=== PATIENT | male | born 1945 | race African-American/Black ===

== ENCOUNTER → 2017-01-08 | Outpatient (CLI) | payer OTHER ==
[~2017-01-08] MED LIST: BUPIVACAINE MPF 0.25% 10 ML VIAL. ONE; DEXAMETHASONE SOD PHOS 4 MG/ML VIAL ONE; IOHEXOL 300 MG/ML 50 ML VIAL. ONE; LIDOCAINE 1% PF 30 ML VIAL. ONE
== END | disposition home or self-care (01) ==
LOC: SURG 11:42
PROVIDERS: ATTEND Anesthesiology Pain Medicine
DX: M54.16 Radiculopathy, lumbar region (principal); I10 Essential (primary) hypertension; K21.9 Gastro-esophageal reflux disease without esophagitis; Z72.89 Other problems related to lifestyle
CPT/HCPCS: 64483; 64484; J1100; J2001; J3490; Q9967

== ENCOUNTER → 2017-01-31 | Outpatient (CLI) | payer OTHER | END | disposition home or self-care (01) | LOC: SURG 14:15 | PROVIDERS: ATTEND Anesthesiology Pain Medicine | DX: M54.5 Low back pain (principal); M79.604 Pain in right leg; M79.605 Pain in left leg; I10 Essential (primary) hypertension; K21.9 Gastro-esophageal reflux disease without esophagitis | CPT/HCPCS: 99214 ==

== ENCOUNTER → 2020-10-06 | Outpatient (CLI) | payer MEDICARE ==
[2020-10-06 09:28] LABS: CREATININE 1.5 mg/dL (0.7-1.3); GFR 55.5
[2020-10-06] MEDS: IOHEXOL 300 MG/ML 75 ML VIAL. IV ONE (09:35)
--- NOTE | 2020-10-06 12:15 | RAD ---
PQRS Compliance Statement: One or more of the following individualized dose reduction techniques were utilized for this examinat ion: 1. Automated exposure control 2. Adjustment of the mA and/or kV according to patient size 3. Use of iterative reconstruction technique CT NECK CHEST W/CONT 10/06/2020 9:37 AM Indication: Hoarseness. Hyperplastic squamous esophageal mucosa. COMPARISON: None available. TECHNIQUE: Multiple axial CT images of the neck and chest were obtained after the intravenous adminis tration of 60 mL Omnipaque 300. Coronal and sagittal reformats are provided. FINDINGS: NECK: Visualized portions of the brain parenchyma and posterior fossa are normal. Orbits are normal i n appearance with exception of bilateral lens replacement. Paranasal sinuses are well aerated. Mastoi d air cells are well aerated. Cerumen is identified in the bilateral external auditory canals. [place] ator space appears normal. Submandibular and parotid glands are normal in appearance. Oral cavity is normal in appearance. There is a peripherally calcified lesion extending from the floor of mouth beyo nd the level of the mylohyoid and sublingual space measuring 1.5 x 0.8 x 2.6 cm suggestive of a punch ing granuloma. Parapharyngeal fat is preserved. No suspicious retropharyngeal lymphadenopathy. Nasoph arynx, oropharynx and hypopharynx are normal in appearance. Larynx and trachea are intact. Thyroid gl and is normal in appearance. No pathologically enlarged cervical lymph nodes are identified. Calcifie d plaque is identified at the carotid bifurcations bilaterally. There is moderate to advanced cervica l spondylosis with moderate disc height loss at C4-C5, C5-C6 and C6-C7 with moderate anterior margina l osteophytosis. There is at least mild spinal canal stenosis. No prevertebral edema. No paraspinal s oft tissue abnormality. CHEST: No pathologically enlarged thoracic lymph nodes. Heart size within normal limits. No pericardi al effusion. Three-vessel coronary artery vessel calcifications. Thoracic esophagus is normal in appe arance. There is bibasilar subsegmental atelectasis. No pleural effusions, pulmonary vascular congest ion or pneumothorax. Liver and spleen are normal in appearance. Simple cysts identified in the superi or poles of the kidneys bilaterally. Right superior pole renal lesion is indeterminate measuring 2.5 cm (25 Hounsfield units). No suspicious osseous abnormality. IMPRESSION: 1. No pathologically enlarged cervical or thoracic lymph nodes. 2. Calcified suspected plunging ranula extending from the floor of mouth and sublingual space through the mylohyoid. Electronically signed by: Mally Machado MD (10/06/2020 12:12 PM) [id number]
== END ==
LOC: CT 08:28
PROVIDERS: ATTEND Internal Medicine Gastroenterology
DX: R05 Cough (principal); R49.0 Dysphonia; M48.02 Spinal stenosis, cervical region
CPT/HCPCS: 36415; 71260; 72132; 82565; 84520; Q9967

== ENCOUNTER → 2020-11-30 | Day surgery (SDC) | payer MEDICARE ==
[~2020-11-30] MED LIST changes: +ACETAMINOPHEN 500 MG TABLET PO PRN; +APIX5TAB3 PO; +ATOR20TA58 PO; +BALANCED SALT IRRIG SOLN NO.2 500 ML IO ONE; +BENZONATATE 100 MG CAPSULE. PO PRN; +BRIMONIDINE 0.2% OPHTH SOLUTION 5ML BOTTLE. OS ONE; -BUPIVACAINE MPF 0.25% 10 ML VIAL. ONE; +CARV25TA2 PO; +CEFUROXIME OPHTH 4 MG/0.4 ML SYRINGE. OS ONE; +CHOL10004 PO; +CHONDROIT-SOD-HYALURONATE KIT. OS ONE; -DEXAMETHASONE SOD PHOS 4 MG/ML VIAL ONE; +FLUT1BLS IH; +FURO-68 PO; +GABA600T7 PO; +HYDR-2765 PO; +IBUPROFEN 200 MG TABLET PO PRN; -IOHEXOL 300 MG/ML 50 ML VIAL. ONE; +IPRATRPIUM/ALBUTEROL 0.5/2.5MG 3 ML NEBU. NEB PRN; +IV RINGERS SOLUTION,LACTATED 1,000 ML IV SCH; +LIDO/EPI IN BSS OPHTH 2.7 ML SYRINGE. OS ONE; -LIDOCAINE 1% PF 30 ML VIAL. ONE; +LIDOCAINE 2% JELLY 6ML IN APPLICATOR. ONE; +LOSA100T14 PO; +MIDAZOLAM HCL PF 2 MG/2 ML VIAL. IV ONE; +ONDANSETRON PF 4 MG/2 ML VIAL. IV PRN; +PANT40TA6 PO; +PHENYLEPHRINE 10% OPHTH SOLUTION 5ML BOTTLE. OS PRN; +POTA10TA5 PO; +POVIDONE-IODINE 5% OPHTH SOLUTION 30ML BOTTLE. OS ONE; +POVIDONE-IODINE 5% OPHTH SOLUTION 30ML BOTTLE. OS PRN; +PROPARACAINE 0.5% OPHTH SOLUTION 15ML BOTTLE. OS ONE; +PROPARACAINE 0.5% OPHTH SOLUTION 15ML BOTTLE. OS PRN; +TAMS0.4C97 PO; +UMEC62.5 IH; +prednisoLONE ACETATE 1% OPHTH SUSPENSION 5ML BOTTLE. OS ONE
[2020-11-30] MEDS: TROPICAMIDE 1% OPHTH SOLUTION 15ML BOTTLE. OS SCH ×3 (09:51→10:03)
[2020-11-30] MEDS: PHENYLEPHRINE 2.5% OPHTH SOLUTION 2ML BOTTLE. OS SCH ×3 (09:51→10:03)
[2020-11-30] MEDS: KETOROLAC TROMETHAMINE 0.5% OPHTH SOLUTION BOTTLE. OS SCH ×2 (09:51→09:58)
[2020-11-30] MEDS: TOBRAMYCIN 0.3% OPHTH SOLUTION 5ML BOTTLE. OS SCH ×2 (09:51→09:57)
--- NOTE | 2020-11-30 10:50 | PDOC4 ---
SURGEON: Tomeka Hanna MD Date of Procedure: 11/30/20 PREOP Diagnosis Visually significant cataract: Left Eye OS POSTOP Diagnosis Same PROCEDURE: Phaco w/ posterior chamber IOL: Left Eye OS ANESTHESIA Deep forniceal periocular 2% Lidocaine jelly Kathy/retro bulbar block with 2% Lidocaine with 0.5% Marcaine DESCRIPTION OF PROCEDURE The risks, benefits, and alternatives were discussed with the patient who elected to proceed. Informed consent was obtained in writing and placed in the chart After anesthetizing the eye topically, the patient was taken to the operating room, and the operative eye was prepped and draped in the usual sterile fashion for ocular surgery. A wire lid speculum was placed. A 1-mm clear corneal paracentesis incision was created with the side-port blade at a position three o'clock hours clockwise from the temporal cornea. Then, 1% non-preserved Lidocaine with epinephrine was injected into the anterior chamber followed by viscoelastic. Cotton-tipped applicators were used to stabilize the globe, and a 2.4 mm keratome was used to create a self-sealing incision in clear cornea at the temporal limbus. The Utrata forceps were used to create a continuous curvilinear capsulorrhexis. Balanced saline solution was injected via cannula beneath the capsulorrhexis edge to hydrodissect the lens nucleus and cortex from the lens capsule. The phacoemulsification handpiece and a chopping instrument were then used to remove the lens nucleus. The remaining epinuclear material and cortex were removed with the irrigation/aspiration handpiece. Vis coelastic was used to re-inflate the lens capsule, and the intraocular lens was injected directly into the capsular bag. The corneal wound edges were hydrated with balanced salt solution on a cannula and the irrigation/aspiration handpiece was used to extract the remaining viscoelastic. Cefuroxime 0.1mg/ml / Vigamox 0.5% was injected into the anterior chamber intracamerally. The wounds were inspected and found to be watertight at an appropriate intraocular pressure. Topical antibiotic drops were placed on the corneal surface. LRI: No If Yes, Number [] [place] [] Length [] degrees Depth [] microns Incision [place]: 180 Toric Lens [place] [] Patch/shield with Maxitrol/Tobradex/Erythromycin ointment: Yes No Co-managed patients/postop examination stable for co-management with referring doctor. EBL EBL: None SPECIMANS COLLECTED Specimens Collected: None TOMEKA HANNA MD Nov 30, 2020 10:50
[2020-11-30 11:15] VITALS: BP 140/90
== END | disposition home or self-care (01) ==
LOC: SURG 09:28
PROVIDERS: ATTEND Ophthalmology
DX: H25.89 Other age-related cataract (principal); I10 Essential (primary) hypertension; M06.9 Rheumatoid arthritis, unspecified; Z87.891 Personal history of nicotine dependence; Z79.899 Other long term (current) drug therapy; Z91.040 Latex allergy status; Z98.890 Other specified postprocedural states
CPT/HCPCS: 66984; J2250; V2632

== ENCOUNTER → 2021-05-25 | Outpatient (CLI) | payer MEDICARE ==
[2020-11-30 11:15] VITALS: BP 140/90
[~2021-05-25] MED LIST changes: -ACETAMINOPHEN 500 MG TABLET PO PRN; -BALANCED SALT IRRIG SOLN NO.2 500 ML IO ONE; -BENZONATATE 100 MG CAPSULE. PO PRN; -BRIMONIDINE 0.2% OPHTH SOLUTION 5ML BOTTLE. OS ONE; -CEFUROXIME OPHTH 4 MG/0.4 ML SYRINGE. OS ONE; -CHONDROIT-SOD-HYALURONATE KIT. OS ONE; -IBUPROFEN 200 MG TABLET PO PRN; -IPRATRPIUM/ALBUTEROL 0.5/2.5MG 3 ML NEBU. NEB PRN; -IV RINGERS SOLUTION,LACTATED 1,000 ML IV SCH; -LIDO/EPI IN BSS OPHTH 2.7 ML SYRINGE. OS ONE; -LIDOCAINE 2% JELLY 6ML IN APPLICATOR. ONE; -MIDAZOLAM HCL PF 2 MG/2 ML VIAL. IV ONE; -ONDANSETRON PF 4 MG/2 ML VIAL. IV PRN; -PHENYLEPHRINE 10% OPHTH SOLUTION 5ML BOTTLE. OS PRN; +POTA-112 PO; -POTA10TA5 PO; -POVIDONE-IODINE 5% OPHTH SOLUTION 30ML BOTTLE. OS ONE; -POVIDONE-IODINE 5% OPHTH SOLUTION 30ML BOTTLE. OS PRN; -PROPARACAINE 0.5% OPHTH SOLUTION 15ML BOTTLE. OS ONE; -PROPARACAINE 0.5% OPHTH SOLUTION 15ML BOTTLE. OS PRN; -prednisoLONE ACETATE 1% OPHTH SUSPENSION 5ML BOTTLE. OS ONE
--- NOTE | 2021-05-25 15:10 | RAD ---
3 views lumbar spine without comparison for status post lumbar surgery, low back pain. FINDINGS: There is pedicle screw and ameena fixation of L4-5, with grade 1 anterolisthesis of L3 on L4 a nd L4 and L5. Intervertebral disc space narrowing at L3-4 and L4-5 and L5-S1, moderate to severe at a ll 3 locations. Bulky anterior osteophytes. Bulky facet arthrosis. Angular curvature at L3-4 is likel y degenerative. Dense atherosclerosis of aorta. Prior pelvic hernia surgery. IMPRESSION: 1. Postsurgical and degenerative changes of lower lumbar spine as described. Electronically signed by: Cuauhtemoc Badillo MD (05/25/2021 3:08 PM) [id number]
== END ==
LOC: RAD 11:09
PROVIDERS: ATTEND Neurological Surgery
DX: M51.36 Other intervertebral disc degeneration, lumbar region (principal); M47.816 Spondylosis without myelopathy or radiculopathy, lumbar region; M25.78 Osteophyte, vertebrae
CPT/HCPCS: 72100